=== PATIENT | female | born 1960 | race African-American/Black ===

== ENCOUNTER → 2020-12-05 | Outpatient (CLI) | payer OTHER ==
[~2020-12-05] MED LIST: HYDR12.58 PO; METO25TA2 PO
--- NOTE | 2020-12-05 16:19 | RAD ---
XR SHOULDER_RIGHT 2+ VIEWS DATE: 12/05/2020 12:02 PM INDICATION: RIGHT SHOULDER PAIN. COMPARISON: None. FINDINGS: Bones: There is no evidence of acute fracture or dislocation. Joints: The joint spaces are normal. The acromiohumeral distance is not narrowed. Miscellaneous: No abnormal soft tissue calcifications in the shoulder. IMPRESSION: No evidence of acute fracture. Electronically signed by: Talon Nassar MD (12/05/2020 4:16 PM) [id number]
== END ==
LOC: RAD 11:45
PROVIDERS: ATTEND Family Medicine
DX: Z02.71 Encounter for disability determination (principal); M25.511 Pain in right shoulder
CPT/HCPCS: 73030

== ENCOUNTER → 2021-07-18 | Outpatient (CLI) | payer OTHER ==
--- NOTE | 2021-07-18 13:40 | RAD ---
EXAM: XR LUMBAR SPINE 2-3V 07/18/2021 9:10 AM CLINICAL INDICATION: Low back pain COMPARISON: None TECHNIQUE: AP, lateral, and coned-down lateral views of the lumbar spine FINDINGS: A numbering system with hypoplastic ribs at T12 is used. The lowest complete disc space is labeled L5-S1. There is no acute fracture. Alignment is normal. There is mild disc space narrowing a nd tiny anterior osteophytes throughout the lumbar spine. No significant facet arthrosis. There are c alcified hepatic and splenic granulomas. Probable bilateral nephrolithiasis. IMPRESSION: 1. Transitional anatomy. 2. Mild degenerative disc disease. Electronically signed by: Madeline Palafox MD (07/18/2021 1:38 PM) [id number]
== END ==
LOC: RAD 08:57
PROVIDERS: ATTEND Family Medicine
DX: M51.36 Other intervertebral disc degeneration, lumbar region (principal); M25.78 Osteophyte, vertebrae; M48.061 Spinal stenosis, lumbar region without neurogenic claudication; K76.89 Other specified diseases of liver; D73.89 Other diseases of spleen
CPT/HCPCS: 72100